=== PATIENT | female | born 1925 | race Caucasian/White ===

== ENCOUNTER 2016-06-11 11:26 | Emergency (ER) | payer MEDICARE, OTHER ==
[2016-06-11] MEDS ORDERED: HYDROCODONE/ACETAMINOPHEN 5/325MG TABLET ONE (12:21)
--- NOTE | 2016-06-11 12:54 | RAD ---
Examination: AP pelvis and two-view left hip. Clinical indication:Left hip pain upon wakening. No known injury. Comparisons:None Findings: Pelvis: The pelvic ring is intact. No displaced fractures identified. The sacrum and anterior sacral neuroforamina are grossly within normal limits. Left hip: Fracture:No displaced fracture is identified. Joint space:Maintained. Femoral head:Smooth Acetabulum:Within normal limits. Soft tissues: Vascular calcifications are noted. Patient is status post lumbar fusion surgery. There is a linear metallic focus overlying the left mid abdomen. This may reflect a hemostatic clip, however a foreign body cannot be excluded. IMPRESSION: 1. No evidence of acute changes involving the pelvis and left hip. 2. Linear metallic focus overlying the left mid abdomen/descending colon. This may reflect postsurgical change, artifact however a foreign body cannot be excluded.
== END 2016-06-11 13:43 | disposition home or self-care (01) ==
LOC: ED 11:26
DX: M25.552 Pain in left hip (principal)
CPT/HCPCS: 73502; 99283 ×2; A9270

== ENCOUNTER 2016-06-21 18:53 | Inpatient (IN) | payer MEDICARE, OTHER ==
[2016-06-21] MEDS ORDERED: IOPAMIDOL 370 (76%) 100 ML VIAL IV ONE (18:54)
[2016-06-21] MEDS ORDERED: ASPIRIN CHEWTAB 81 MG TABLET ONE (19:02)
[2016-06-21 19:18] LABS: BASO % 0.3 % (0.2-1.0); EOS # 0.1 (0.0-0.5); EOS % 0.8 % (0.9-2.9); HEMATOCRIT 45.5 % (37.0-47.0); HEMOGLOBIN 15.2 gm/l (12.0-16.0); IMM NEUT% 0.3 % (0-1); LYMPH # 1.7 (1.0-4.8); LYMPH % 22.5 % (15-45); MEAN CELL VOLUME 96.4 fl (81.0-99.0); MEAN CORPUSCULAR HEMOGLOBIN 32.2 pg (27.0-31.0); MEAN CORPUSCULAR HGB CONC 33.4 g/dl (33.0-37.0); MEAN PLATELET VOLUME 10.7 fl (7.4-10.4); MONO # 0.6 (0.0-0.8); MONO % 8.5 % (4-12); NEUT % 67.6 % (43-75); PLATELET COUNT 276 K/mm3 (130-400); RED CELL DISTRIBUTION WIDTH 14.3 % (11.5-14.5)
[2016-06-21 19:35] LABS: ALB/GLOB RATIO 1.4 (>1.0); ALBUMIN 3.7 gm/dL (3.5-5.7); CALCIUM 9.2 mg/dL (8.6-10.3)
--- NOTE | 2016-06-21 19:35 | CT ---
EXAMINATION:CT SCAN HEAD W/O CONTRAST. CLINICAL INDICATION:Difficulty speaking since 6:30 COMPARISON:None TECHNIQUE: A Cranial CT was performed using a [employer] multislice CT scanner. Axial images were acquired from just above the vertex through the skull base. 4 mm stacked axial, sagittal, and coronal reconstructed images were reviewed. FINDINGS: There is global diffuse atrophy. Within the cerebellum there is extensive white matter calcifications bilaterally. There is moderately diminished attenuation within the periventricular white matter tracts bilaterally. No intracranial hemorrhage or mass effect is identified. No extra-axial fluid collections are seen. The cerebellar pontine angle cisterns are normal and symmetric. The osseous structures are intact. The paranasal sinuses are unremarkable. The orbits and retrobulbar regions are unremarkable.:The mastoid sinuses are clear. Large sebaceous cyst are noted involving the scalp. No scalp hematoma is identified. IMPRESSION: 1. Extensive bilateral cerebellar white matter calcifications. Findings may be a reflection of a metabolic disorder such as hypoparathyroidism, Martha's hypothyroidism, or toxic ingestion. No acute intracranial hemorrhage or mass effect is identified. 2. Global diffuse atrophy with microvascular ischemic changes. 3. Large sebaceous cysts involving the scalp soft tissues. The findings were uploaded to the electronic medical record for review at approximately 7:35 PM 06/21/2016
--- NOTE | 2016-06-21 19:40 | CT ---
EXAMINATION: Cranial CT angiogram without and with contrast. 3-D post processing. CLINICAL INDICATION: Difficulty speaking. Achalasia. COMPARISON:None TECHNIQUE: Multi-slice [employer] CT scanner was used. Axial images were acquired from the skull base to the vertex in a standard fashion. Sagittal axial and coronal stacked reconstructed images were reviewed. Following uneventful intravenous administration of 80 milliliters of Isovue-370, axial images were acquired in a similar fashion. Stacked images were again reviewed. 3-D post processing was performed at the [employer] workstation. NASCET criteria was used for stenosis measurement. FINDINGS: The right internal carotid artery, anterior cerebral and middle cerebral artery are not occluded. There is no aneurysm. No high-grade stenosis is suggested. The left internal carotid cavernosal segment anterior cerebral and middle cerebral arteries are patent. No aneurysm or occlusion is identified. Anterior cerebral arteries are well opacified. Posterior commuting arteries are patent. The vertebral basilar system is unremarkable. There is a left dominant vertebral artery. No occluded segments or aneurysms are identified. Global diffuse atrophy and microvascular ischemic changes with extensive cerebellar calcifications are again noted. No enhancing mass is identified. Sebaceous cysts of the scalp are present. There is mucoperiosteal thickening left maxillary sinus. The orbits are unremarkable. The osseous structures are intact. IMPRESSION: 1. No evidence of acute arterial occlusion, stenosis or aneurysm. 2. Extensive bilateral cerebellar calcifications. Findings may be a reflection of hypoparathyroidism or metabolic disorder. 3. Global diffuse atrophy with microvascular ischemic changes. No intracranial hemorrhage or mass effect is identified. 4. Left maxillary sinus disease. 5. Multiple scalp sebaceous cysts. The findings were uploaded to the electronic medical record for review at approximately 7:40 PM 06/21/2016
--- NOTE | 2016-06-21 19:45 | CT ---
EXAMINATION: CTA CAROTID W/ POST PROCESS: CLINICAL INDICATION: Stroke symptoms TECHNIQUE: Following uneventful administration of 80 cc of Isovue-370 intravenously, axial images were obtained from the posterior fossa to the superior mediastinum. Sagittal and coronal reconstructed images are acquired and reviewed. 3D postprocessing was performed at the [employer] workstation and reviewed in multiple planes. Stenosis measurements are based on NASCET criteria. FINDINGS: (NONANGIOGRAM FINDINGS): Trachea is midline. The vocal cords are unremarkable. The epiglottis is within normal limits. No tongue base lesions are identified. Fossa Rosenmuller are symmetric. There is no parapharyngeal mass. No discernible adenopathy is identified. There is no inflammatory stranding. The parotid glands and submandibular glands are within normal limits. Spondylosis changes of the cervical spine are noted. There is left maxillary sinus disease. The lung apices exhibit mild peripheral pleural/parenchyma scarring. CT ANGIOGRAM FINDINGS: Right side: The right common carotid artery is unremarkable. There is extensive atherosclerotic plaque at the carotid bifurcation with approximately 70% origin stenosis of the right internal carotid artery. There is no evidence of occlusion. The distal internal carotid arteries unremarkable to the skull base. Left side tortuosity left common carotid arteries noted. Is not midline and anterior the cervical spine. Not the carotid bifurcation there is a proximally 70-80 % origin stenosis of the left internal carotid artery. The distal left internal carotid artery is unremarkable to the skull base. Mild atherosclerotic plaquing involves cavernosal segments bilaterally. There is no aneurysm. Antegrade flow is demonstrated in the vertebrals bilaterally. There is a left dominant vertebral system. No evidence of stenosis or occlusion. IMPRESSION: 1. Approximately 70% origin stenosis of the right internal carotid artery. 2. Approximately 70-80% diameter stenosis of the left internal carotid artery. 3. Antegrade flow is demonstrated in the vertebral bilaterally left greater than right. 4. Non angiogram findings as discussed above. The findings were uploaded to the electronic medical record for review at approximately 7:46 PM 06/21/2016
[2016-06-21 19:52] LABS: INR 0.9; PARTIAL THROMBOPLASTIN TIME 23.4 SECONDS (24.5-33.0); PROTHROMBIN TIME 9.3 SECONDS (9.3-11.4)
[2016-06-21 20:00] LABS: PH,URINE 6.5 (5.0-8.0); URINE BILIRUBIN NEGATIVE (NEGATIVE); URINE BLOOD NEGATIVE (NEGATIVE); URINE GLUCOSE (UA) NEGATIVE (NEGATIVE); URINE LEUKOCYTE ESTERASE TRACE (NEGATIVE); URINE NITRITE POSITIVE (NEGATIVE); URINE PROTEIN NEGATIVE (NEGATIVE); URINE UROBILINOGEN NORMAL (0-1 mg/dl)
[2016-06-21 20:04] LABS: URINE APPEARANCE CLEAR; URINE COLOR YELLOW
[2016-06-21 20:12] LABS: URINE AMORPHOUS SEDIMENT FEW; URINE BACTERIA 2+; URINE EPITHELIAL CELLS 0 /hpf; URINE RBC 0 /hpf; URINE WBC 0-2 /hpf
--- NOTE | 2016-06-21 20:21 | RAD ---
EXAMINATION : CHEST-AP BEDSIDE HISTORY: Difficulty speaking. Stroke symptoms. COMPARISONS: Prior exam dated 11/29/2011. FINDINGS: There is cardiac megaly with mild aortic ectasia. There are low lung volumes with basilar atelectasis. No gross effusion is identified. The osseous structures are within normal limits. IMPRESSION: Senescent changes of thorax with cardiomegaly and aortic ectasia. There is poor inspiratory effort with bibasilar atelectasis.
[2016-06-21] MEDS ORDERED: MAGNESIUM HYDROXIDE 30 ML UDCUP PO PRN (21:31)
[2016-06-21] MEDS ORDERED: BLISTEX LIPSTICK 1 EACH TP PRN (21:31)
[2016-06-21] MEDS ORDERED: ACETAMINOPHEN 325 MG TABLET PO PRN (21:31)
[2016-06-21] MEDS ORDERED: SODIUM CHLORIDE 0.9% 100 ML IV PRN (21:31)
[2016-06-21] MEDS ORDERED: MENTHOL/CETYLPYRD 1 EACH LOZENGE PO PRN (21:31)
[2016-06-21] MEDS ORDERED: BISACODYL 5 MG TABLET.EC PO PRN (21:31)
[2016-06-21] MEDS ORDERED: BISACODYL 10 MG SUP PR PRN (21:31)
[2016-06-21] MEDS: METOPROLOL TARTRATE 25 MG TABLET PO SCH (23:15)
[2016-06-21] MEDS: HYDROCODONE/ACETAMINOPHEN 5/325MG TABLET PO PRN (23:15)
[2016-06-21] MEDS: ENOXAPARIN SODIUM 40 MG/0.4 ML SYRINGE SUB-Q SCH (23:15)
[2016-06-21 23:22] VITALS: BMI 36.7
--- NOTE | 2016-06-22 07:19 | HP ---
Roseann Ortiz [id number] CHIEF COMPLAINT: Stroke symptoms. HISTORY OF PRESENT ILLNESS: The patient is a 89-year-old female brought to the [facility] Emergency Department by her family due to concerns about some stroke symptoms manifested by altered speech and difficulty communicating. She also seemed to have some diffuse weakness. Her symptoms were discovered around 6:00 p.m. She was last seen in her normal state around 12:30 p.m. In the emergency department she was evaluated by the stroke team and felt to have an expressive aphasia. Treatment with full strength aspirin and workup with an echocardiogram was recommended. EKG showed sinus rhythm. REVIEW OF SYSTEMS: Negative for any recent fevers, chills, or upper respiratory symptoms. No cough, dyspnea, wheezing, chest pain, shortness of breath, or palpitations. No nausea, vomiting, abdominal pain, diarrhea, or constipation. She has had some persistent right hip pain in the last couple of weeks, in fact was seen by her primary care provider for that this morning before her symptoms started. She has had no complaints of headaches. No reports of any fainting, blackouts, or seizures. No urinary complaints. Review of systems is otherwise negative. PAST MEDICAL HISTORY: Significant for a history of atherosclerotic heart disease, she has had a stent placed in the past, details are not available. She has had chronic essential hypertension, hypercholesterolemia, hypothyroidism, and osteoarthritis. She has had no recent hospitalizations. She has some chronic back pain. PAST SURGICAL HISTORY: Significant for coronary stent in the past, details are not available, prior appendectomy, cholecystectomy, hysterectomy, and lumbar spine surgery. ALLERGIES: DOCUMENTED TO CODEINE, REACTION UNKNOWN PRESUMABLE IT IS JUST VOMITING. She has been tolerating hydrocodone without any problems. CURRENT MEDICATIONS: Have yet to be determined. I am waiting on confirmation of her meds from her family. Her electronic health record will be updated with a complete list when I am able to do so, but it sounds like she is on: 1. Levothyroxine. 2. Lisinopril. 3. Metoprolol. 4. Simvastatin. 5. Torsemide. 6. Isosorbide. 7. Nitrostat. 8. [place]. FAMILY HISTORY: Unremarkable. SOCIAL HISTORY: The patient lives alone. She is . She has a niece and a daughter checking on her frequently. She smokes a half of a pack of cigarettes per day. She has had difficulty quitting. She has about a 40 pack year history of smoking. No history of alcohol or illicit drug use is reported. Her primary care provider is Dr. Sandro Auguste [facility] in [place]. PHYSICAL EXAMINATION: VITAL SIGNS: Show initial blood pressure 163/68, currently most recently was down to 176/67, pulse 57, respirations 18, oxygen saturation is 95% on room air. Weight has not been performed. GENERAL: This is an obese female in no acute distress. HEENT: Shows pupils equal, round, and reactive to light. Extraocular movements are intact. No oral lesions are present. No fascial droop is present. NECK: Supple without lymphadenopathy or thyromegaly. LUNGS: Clear to auscultation bilaterally. CARDIOVASCULAR: Reveals a regular rate and rhythm without a murmur. ABDOMEN: Soft, nontender, nondistended with positive bowel sounds. PELVIC: Deferred. RECTAL: Deferred. EXTREMITIES: Show no peripheral edema. NEUROLOGIC: Reveals word finding difficulties at times. She is alert and oriented x3. 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 Deep tendon reflexes are 2+ in both upper and lower extremities. Aside from her word finding difficulties her exam is nonfocal. DIAGNOSTICS: She had a CTA of the head and neck as well as a brain CT and no significant flow limiting stenoses were identified. Chest x-ray is remarkable for cardiomegaly, some bibasilar atelectasis. EKG showed sinus rhythm with occasional premature ventricular contractions. ASSESSMENT: The patient has mild expressive aphasia consistent acute cerebrovascular accident outside the window for treatment beyond aspirin. She has chronic essential hypertension, hypercholesterolemia, hypothyroidism, coronary artery disease involving the creek vessels and creek heart with I believe stable angina and elevated creatinine suspicious for chronic stage III kidney disease. She is admitted for neuro checks, speech therapy, occupational therapy, and physical therapy. We will continue aspirin full strength daily. She will get an echocardiogram in the morning and we will get a fasting lipid profile as well. Further treatment and recommendations will depend on her hospital course. Venous thromboembolism risk is moderate and prophylaxis has been prescribed in the form of Lovenox. JOB: [id number] CC: Dr. Sandro Auguste with the [facility] in [place]
[2016-06-22] MEDS: LISINOPRIL 20 MG TABLET PO SCH (10:02)
[2016-06-22] MEDS: DOCUSATE SODIUM 100 MG CAPSULE PO SCH ×2 (10:02→20:29)
[2016-06-22] MEDS: ISOSORBIDE MONONITRATE 30 MG TAB.SR PO SCH (10:03)
[2016-06-22] MEDS: ASPIRIN (ENTERIC COATED) 325 MG TABLET.EC PO SCH (10:03)
[2016-06-22] MEDS: METOPROLOL TARTRATE 25 MG TABLET PO SCH ×2 (10:22→20:29)
--- NOTE | 2016-06-22 12:35 | PDOC43 ---
- Subjective Chief Complaint: Aphasia Patient reports doing ok, no c/o. Pt reports speech doing ok. Was able to walk some with help. Waiting on PT, ST and OT eval. Pt has been having some L lateral hip pain, and had seen Dr Auguste just yesterday about this. Previously had been on [place], but Dr Auguste didn't prescribe anything for this. RN reports some R sided weakness, difficulty with using R arm, but did walk with 2 person help. - Objective Vital Signs Temperature 98.4 F 06/22/16 11:00 Pulse Rate 65 06/22/16 11:00 Respiratory Rate 16 06/22/16 11:00 Blood Pressure 156/80 06/22/16 11:00 O2 Saturation by Pulse Oximetry 90 06/22/16 11:00 Oxygen Delivery Method Room Air Oxygen Flow Rate 0 Vital Signs Last 12 Hours Temp Pulse Resp BP Pulse Ox 06/22/16 11:00 98.4 F 65 16 156/80 90 06/22/16 08:00 18 06/22/16 07:00 98.3 F 52 18 144/56 94 06/22/16 03:27 98.7 F 54 18 151/59 96 06/22/16 03:00 18 Intake and Output 06/20/16 06/21/16 06/22/16 23:59 23:59 23:59 Intake Total 400 Output Total 450 Balance -50 General: Alert, Other (affect sl grumpy) Lungs: Clear to Auscultation Bilaterally Cardiovascular: Regular Rate and Rhythm Abdomen: Soft, Normal Bowel Sounds, Non-Distended Extremities: No Edema Psych/Mental Status: Other ("grumpy" affect) 06/22/16 05:54 Cholesterol 133 L HDL Cholesterol 33 L Laboratory Tests 06/21/16 06/22/16 19:05 05:54 Troponin I < 0.01 Triglycerides 139 Cholesterol 133 L Cholesterol Risk Factr 4.0 LDL Cholesterol 72 VLDL Cholesterol 28 HDL Cholesterol 33 L Current Medications: Current meds reviewed in EMR. Active Medications Acetaminophen (Tylenol) 650 mg PO Q6H PRN PRN Reason: Pain or Temperature > 100.5 F Acetaminophen/Hydrocodone Bitart ([place] 5/325) 1 - 2 tab PO Q4H PRN PRN Reason: Pain Last Admin: 06/21/16 23:15 Dose: 2 tab Aspirin (Ecotrin) 325 mg PO DAILY FABIENNE Last Admin: 06/22/16 10:03 Dose: 325 mg Benzocaine/Menthol (Cepacol) 1 each PO PRN PRN PRN Reason: Sore Throat Bisacodyl (Dulcolax) 10 mg [place] DAILY PRN PRN Reason: Constipation Bisacodyl (Dulcolax) 5 mg PO DAILY PRN PRN Reason: Constipation Docusate Sodium (Colace) 100 mg PO BID [facility] Last Admin: 06/22/16 10:02 Dose: 100 mg Enoxaparin Sodium (Lovenox) 40 mg SUB-Q Q24H [facility] Last Admin: 06/21/16 23:15 Dose: 40 mg Sodium Chloride (Sodium Chloride 0.9%) 100 mls @ 25 mls/hr IV PRN PRN PRN Reason: Flush Isosorbide Mononitrate (Imdur) 30 mg PO QAM [facility] Last Admin: 06/22/16 10:03 Dose: 30 mg Lisinopril (Prinivil) 40 mg PO DAILY [facility] Last Admin: 06/22/16 10:02 Dose: 40 mg Magnesium Hydroxide (Milk Of Magnesia) 30 ml PO DAILY PRN PRN Reason: Constipation Metoprolol Tartrate (Lopressor) 25 mg PO BID [facility] Last Admin: 06/22/16 10:22 Dose: Not Given Petrolatum/Paraffin/Mineral Oil (Blistex) 1 each TP PRN PRN PRN Reason: Dry and/or chapped lips Simvastatin (Zocor) 40 mg PO QPM [facility] Sodium Chloride (Normal Saline 10ml Flush) 10 - 50 ml IV PRN PRN PRN Reason: IV Flush Sodium Chloride (Normal Saline 10ml Flush) 10 ml IV Q8HR [facility] Last Admin: 06/22/16 10:02 Dose: 10 ml - Problems: Assessment/Plan (1) Aphasia Status: Acute Assessment/Plan: Was not candidate for lysis/intervention. Echo, PT/OT/ST planned. Appears to have had some degree of improvement, but family not able to quantify Planning permissive HTN, holding beta joshua with marked bradycardia. CT showed small vessel disease, but not acute stroke. Suspect smaller vessel disease with hx smoking, HTN. (2) Smoking Status: Acute VTE Prophylaxis: enoxaparin 40 mg for VTE Disposition: Planning on staying here tonight. Appreciate PT/OT/ST to assess for placement needs.
[2016-06-22] MEDS: HYDROCODONE/ACETAMINOPHEN 5/325MG TABLET PO PRN (20:29)
[2016-06-23] MEDS: ENOXAPARIN SODIUM 40 MG/0.4 ML SYRINGE SUB-Q SCH ×3 (00:26→22:11)
[2016-06-23] MEDS: SIMVASTATIN 40 MG TABLET PO SCH ×2 (00:27→20:44)
[2016-06-23] MEDS: DOCUSATE SODIUM 100 MG CAPSULE PO SCH ×2 (08:35→20:42)
[2016-06-23] MEDS: ASPIRIN (ENTERIC COATED) 325 MG TABLET.EC PO SCH (08:35)
[2016-06-23] MEDS: LISINOPRIL 20 MG TABLET PO SCH (08:35)
[2016-06-23] MEDS: ISOSORBIDE MONONITRATE 30 MG TAB.SR PO SCH (08:35)
[2016-06-23] MEDS: METOPROLOL TARTRATE 25 MG TABLET PO SCH ×2 (09:35→20:42)
--- NOTE | 2016-06-23 11:37 | PDOC43 ---
- Subjective Chief Complaint: Aphasia Patient reports speech a bit better. Had breakfast today. Noted to have some leg weakness with walking. No other c/o today. - Objective Vital Signs Temperature 97.8 F 06/23/16 06:50 Pulse Rate 53 06/23/16 06:50 Respiratory Rate 18 06/23/16 07:55 Blood Pressure 132/65 06/23/16 06:50 O2 Saturation by Pulse Oximetry 93 06/23/16 06:50 Oxygen Delivery Method Room Air Oxygen Flow Rate 0 Vital Signs Last 12 Hours Temp Pulse Resp BP Pulse Ox 06/23/16 07:55 18 06/23/16 06:50 97.8 F 53 18 132/65 93 06/23/16 03:00 98.4 F 67 18 116/58 93 06/23/16 02:00 18 Intake and Output 06/21/16 06/22/16 06/23/16 23:59 23:59 23:59 Intake Total 650 350 Output Total 980 Balance -330 350 General: Alert, Cooperative, No Acute Distress HEENT: Atraumatic Lungs: Clear to Auscultation Bilaterally, Normal Air Movement Cardiovascular: Regular Rate and Rhythm Abdomen: Soft, Normal Bowel Sounds, Non-Distended Extremities: No Edema Neurological: Other (speech improved, rate better, words seem to come out better , less taciturn. CN intact. Finger to nose sl improved today, and following directions seems sl better today as well.) Psych/Mental Status: Normal Affect Urine cx = E coli, pansens Current Medications: Current meds reviewed in EMR. Active Medications Acetaminophen (Tylenol) 650 mg PO Q6H PRN PRN Reason: Pain or Temperature > 100.5 F Acetaminophen/Hydrocodone Bitart ([place] 5/325) 1 - 2 tab PO Q4H PRN PRN Reason: Pain Last Admin: 06/22/16 20:29 Dose: 2 tab Aspirin (Ecotrin) 325 mg PO DAILY [facility] Last Admin: 06/23/16 08:35 Dose: 325 mg Benzocaine/Menthol (Cepacol) 1 each PO PRN PRN PRN Reason: Sore Throat Bisacodyl (Dulcolax) 10 mg [place] DAILY PRN PRN Reason: Constipation Bisacodyl (Dulcolax) 5 mg PO DAILY PRN PRN Reason: Constipation Docusate Sodium (Colace) 100 mg PO BID [facility] Last Admin: 06/23/16 08:35 Dose: 100 mg Enoxaparin Sodium (Lovenox) 40 mg SUB-Q Q24H [facility] Last Admin: 06/23/16 00:26 Dose: 40 mg Sodium Chloride (Sodium Chloride 0.9%) 100 mls @ 25 mls/hr IV PRN PRN PRN Reason: Flush Isosorbide Mononitrate (Imdur) 30 mg PO QAM [facility] Last Admin: 06/23/16 08:35 Dose: 30 mg Lisinopril (Prinivil) 40 mg PO DAILY [facility] Last Admin: 06/23/16 08:35 Dose: 40 mg Magnesium Hydroxide (Milk Of Magnesia) 30 ml PO DAILY PRN PRN Reason: Constipation Metoprolol Tartrate (Lopressor) 25 mg PO BID [facility] Last Admin: 06/23/16 09:35 Dose: Not Given Petrolatum/Paraffin/Mineral Oil (Blistex) 1 each TP PRN PRN PRN Reason: Dry and/or chapped lips Simvastatin (Zocor) 40 mg PO QPM [facility] Last Admin: 06/23/16 00:27 Dose: 40 mg Sodium Chloride (Normal Saline 10ml Flush) 10 - 50 ml IV PRN PRN PRN Reason: IV Flush Sodium Chloride (Normal Saline 10ml Flush) 10 ml IV Q8HR [facility] Last Admin: 06/23/16 08:35 Dose: 10 ml - Problems: Assessment/Plan (1) Aphasia Status: Acute Assessment/Plan: due to stroke Was not candidate for lysis/intervention. Echo, PT/OT/ST planned. Appears to have had good improvement in speech; but still with difficulty with legs/transfer/ambulation Planning permissive HTN, holding beta joshua with marked bradycardia. Aspirin [address] showed small vessel (cerebral) disease, but not acute stroke. Suspect smaller (cerebral) vessel disease with hx smoking, HTN. (2) Smoking Status: Acute Assessment/Plan: encouraged not smoking (3) E. coli UTI (urinary tract infection) Status: Acute Assessment/Plan: pansensitive. Start ciprofloxacin VTE Prophylaxis: enoxaparin 40 mg for VTE Disposition: Planning on staying here tonight. Appreciate PT/OT/ST to assess for placement needs; anticipate SNF.
[2016-06-23] MEDS: CIPROFLOXACIN 250 MG TABLET PO SCH ×2 (12:52→20:44)
[2016-06-23] MEDS ORDERED: DICLOFENAC SODIUM TP PRN (13:30)
[2016-06-24] MEDS ORDERED: SODIUM CHLORIDE 0.9% FLUSH 10 ML ONE (03:56)
[2016-06-24] MEDS ORDERED: IV START KIT ONE (03:57)
[2016-06-24 05:55] LABS: ABSOLUTE NEUTROPHIL COUNT 4.6 K/mm3 (1.8-7.7); BASO % 0.5 % (0.2-1.0); EOS # 0.1 (0.0-0.5); EOS % 1.1 % (0.9-2.9); HEMATOCRIT 44.6 % (37.0-47.0); HEMOGLOBIN 14.6 gm/l (12.0-16.0); IMM NEUT% 0.3 % (0-1); LYMPH # 1.7 (1.0-4.8); LYMPH % 22.8 % (15-45); MEAN CORPUSCULAR HEMOGLOBIN 32.1 pg (27.0-31.0); MEAN CORPUSCULAR HGB CONC 32.7 g/dl (33.0-37.0); MEAN PLATELET VOLUME 11.2 fl (7.4-10.4); MONO # 0.9 (0.0-0.8); MONO % 11.9 % (4-12); NEUT % 63.4 % (43-75); PLATELET COUNT 270 K/mm3 (130-400); RED CELL DISTRIBUTION WIDTH 14.4 % (11.5-14.5)
[2016-06-24 06:16] LABS: CALCIUM 8.7 mg/dL (8.6-10.3)
[2016-06-24] MEDS: DOCUSATE SODIUM 100 MG CAPSULE PO SCH (08:43)
[2016-06-24] MEDS: LISINOPRIL 20 MG TABLET PO SCH (08:43)
[2016-06-24] MEDS: ISOSORBIDE MONONITRATE 30 MG TAB.SR PO SCH (08:43)
[2016-06-24] MEDS: METOPROLOL TARTRATE 25 MG TABLET PO SCH (08:43)
[2016-06-24] MEDS: ASPIRIN (ENTERIC COATED) 325 MG TABLET.EC PO SCH (08:43)
[2016-06-24] MEDS: CIPROFLOXACIN 250 MG TABLET PO SCH (08:43)
[2016-06-24 13:08] VITALS: BP 122/59
--- NOTE | 2016-06-24 13:23 | DS ---
Roseann Ortiz [id number] DATE OF ADMISSION: June 21, 2016 DATE OF DISCHARGE: June 24, 2016 DISCHARGE DIAGNOSES: Acute cerebrovascular accident within the left middle cerebral artery distribution, suspect an occlusion of one of the small vessels in the distribution of that arterial system. The patient had an expressive aphasia on presentation. She has chronic essential hypertension, hypercholesterolemia, hypothyroidism, chronic coronary artery disease, stable involving the [place] vessels and chronic stage III kidney disease with a baseline creatinine around 1.3, asymptomatic bacteriuria caused by Escherichia coli. TO SUMMARIZE THE ADMISSION AND HOSPITAL COURSE: The patient is an [id number] female who presented with diffuse weakness, dysarthria, difficulty communicating with some expressive aphasia. She had last been seen normal about 5-1/2 hours prior to her presentation. She had no focal weakness and all of her symptoms were mainly with regards to her speech. She underwent stroke evaluation in the emergency department with a CTA of the head and neck showing no significant flow limiting stenoses involving the large arterial system of the head or neck. CT of the brain showed extensive bilaterally cerebellar white matter calcifications and global diffuse atrophy with microvascular ischemic change. She was treated with aspirin therapy. She underwent evaluation with speech therapy, physical therapy, and occupational therapy during her hospital stay. She showed significant improvement in her symptoms during her stay, but was felt to be a good candidate for ongoing alf care for physical therapy, occupational therapy, and speech therapy. She had an echocardiogram showing no evidence of any cardiac thrombus or significant valvular abnormalities. She had a fasting lipid profile showing a total cholesterol of 133 and a LDL of 72 with an HDL of 33. She was felt to medically stable for discharge to the rehab facility on June 24. The patient did have asymptomatic bacteriuria during her hospitalization, treated with ciprofloxacin caused by E-coli. PHYSICAL EXAMINATION: VITALS: At discharge showed a body mass index of 36.7, weight is 91.1 kg, temperature is 98.0, pulse is 74, blood pressure 141/68, respirations 18, oxygen saturation 98% on room air. GENERAL: This is an obese female in no acute distress. HEENT: Shows pupils equal, round, and reactive to light. Extraocular movements are intact. No oral lesions are present. NECK: Supple without lymphadenopathy or thyromegaly. LUNGS: Clear to auscultation bilaterally. CARDIOVASCULAR: Reveals a regular rate and rhythm without a murmur. ABDOMEN: Soft, obese, nontender, nondistended with positive bowel sounds. NEUROLOGIC: Nonfocal. Speech is improving. Occasionally she has some word finding difficulties. LABORATORY STUDIES: Show a sodium 139, potassium 3.7, creatinine 1.2. DISPOSITION: [facility] for physical therapy, occupational therapy, and speech therapy services evaluate and treat. DISCHARGE DIET: Dysphagia soft mechanical diet. [facility]ERGIES: [facility] CODE STATUS: Full code. She will get skin care, bowel care, podiatry care per house protocol. DISCHARGE MEDICATIONS: She will be discharging on discharge medications of: 1. Lopressor 25 mg by mouth twice daily. 2. Lisinopril 40 mg by mouth daily. 3. Zocor 40 mg at bedtime. 4. Levothroid 100 mcg by mouth Monday, Monday, Monday, , Monday, 50 mcg by mouth on Monday and Monday. 5. Imdur 30 mg by mouth every morning. 6. Voltaren gel one application topically four times daily as needed for pain over the joints. 7. Aspirin 325 mg daily. Family will be transporting the patient to the alf facility. Rehab potential is felt to be good. ACTIVITY: As tolerated. Weightbearing restrictions none. JOB: [id number] CC: Dr. Sandro Auguste in [place]
== END 2016-06-24 14:40 | DRG 65 ==
LOC: ED 18:53 → MS 20:05
PROVIDERS: ADMIT Family Medicine; ATTEND Family Medicine
DX: I63.9 Cerebral infarction, unspecified (principal); N39.0 Urinary tract infection, site not specified; M25.552 Pain in left hip; R00.1 Bradycardia, unspecified; F17.210 Nicotine dependence, cigarettes, uncomplicated; B96.20 Unspecified Escherichia coli [E. coli] as the cause of diseases classified elsewhere; G93.89 Other specified disorders of brain; I99.8 Other disorder of circulatory system; L72.3 Sebaceous cyst; I65.23 Occlusion and stenosis of bilateral carotid arteries; R47.01 Aphasia; I12.9 Hypertensive chronic kidney disease with stage 1 through stage 4 chronic kidney disease, or unspecified chronic kidney disease; N18.3 Chronic kidney disease, stage 3 (moderate); I25.10 Atherosclerotic heart disease of native coronary artery without angina pectoris; E78.00 Pure hypercholesterolemia, unspecified; E03.9 Hypothyroidism, unspecified